=== PATIENT | female | born 2000 | race African-American/Black ===

== ENCOUNTER 2021-05-27 21:39 | Emergency (ER) | payer MEDICAID ==
[~2021-05-27] VITALS: Ht 165.1 cm; Wt 91.0 kg
[2021-05-27] MEDS: KETOROLAC 60MG/2ML VIAL IM ONE (23:00)
[2021-05-28] MEDS ORDERED: IBUP-2029 MT (00:24)
[2021-05-28 00:40] VITALS: BP 116/97
[2021-05-28] MEDS: HYDROCODONE/ACETAMINOPHEN 5/325MG TABLET PO ONE (00:40)
== END 2021-05-28 00:46 | disposition home or self-care (01) ==
LOC: ER 21:39
DX: R07.89 Other chest pain (principal); R07.81 Pleurodynia
CPT/HCPCS: 71046; 81025; 96372; 99283

== ENCOUNTER 2022-03-30 02:54 | Observation (INO) | payer MEDICAID ==
[~2022-03-30] VITALS: Ht 165.1 cm; Wt 91.6 kg
[~2022-03-30 02:54] MED LIST: IBUP-2029 MT
[2022-03-30] MEDS ORDERED: ACETAMINOPHEN 500MG TABLET PO NR (04:15)
[2022-03-30 05:19] LABS: CLARITY URINE CLEAR (CLEAR); COLOR URINE YELLOW (YELLOW); KETONES URINE NEGATIVE (NEGATIVE); LEUKOCYTE ESTERASE URINE 2+ (NEGATIVE); NITRITE URINE NEGATIVE (NEGATIVE); OCCULT BLOOD URINE NEGATIVE (NEGATIVE); PH URINE 7.5 (4.5-8.0); PROTEIN URINE NEGATIVE (NEGATIVE); SPECIFIC GRAVITY URINE 1.004 (1.005-1.030); UROBILINOGEN URINE 0.2 E.U./dL (0.2-1.0)
== END 2022-03-30 06:50 | disposition home or self-care (01) ==
LOC: 8 EST LDRP 02:54
PROVIDERS: ADMIT Obstetrics & Gynecology; ATTEND Obstetrics & Gynecology
DX: O99.891 Other specified diseases and conditions complicating pregnancy (principal); M54.50 Low back pain, unspecified; Z3A.29 29 weeks gestation of pregnancy
CPT/HCPCS: 59025; 81003; 82731; G0378; 99281